=== PATIENT | female | born 1955 | race American Indian/Alaskan Native ===

== ENCOUNTER 2017-12-08 11:10 | Emergency (ER) | payer OTHER ==
[2017-12-08] MEDS ORDERED: TORADOL IM ONE (12:38)
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
[2017-12-08 14:11] VITALS: BP 136/72
== END 2017-12-08 14:07 | disposition home or self-care (01) ==
LOC: ED 11:10
DX: M54.89 Other dorsalgia (principal); M79.601 Pain in right arm; V89.2XXA Person injured in unspecified motor-vehicle accident, traffic, initial encounter; Y93.89 Activity, other specified; Y99.8 Other external cause status; Y92.410 Unspecified street and highway as the place of occurrence of the external cause
CPT/HCPCS: 72072; 73060; 73090; 96372; 99283; J1885